=== PATIENT | male | born 1970 | race Two or more races ===

== ENCOUNTER 2017-07-06 15:23 | Emergency (ER) | payer OTHER ==
[~2017-07-06] VITALS: Ht 172.7 cm; Wt 114.3 kg
[~2017-07-06 15:23] MED LIST: CIPRO250 MG; FLAGYL375 MG
[2017-07-06] MEDS ORDERED: SYNTHROID50 MCG (15:30)
[2017-07-06] MEDS ORDERED: HYDROCHLOROTHIA25 MG (15:31)
== END 2017-07-06 18:50 | disposition home or self-care (01) ==
LOC: ER 15:23
DX: J11.1 Influenza due to unidentified influenza virus with other respiratory manifestations (principal); B34.9 Viral infection, unspecified

== ENCOUNTER 2019-11-18 10:35 | Emergency (ER) | payer OTHER ==
[~2019-11-18] VITALS: Ht 172.7 cm; Wt 98.9 kg
[~2019-11-18 10:35] MED LIST changes: +HYDROCHLOROTHIA25 MG; +SYNTHROID50 MCG
[2019-11-18] MEDS ORDERED: UROCIT-K15 MEQ (10:50)
[2019-11-18] MEDS ORDERED: VYZULTA5 ML (10:51)
[2019-11-18] MEDS ORDERED: INTESTINEX680 M1 PO (13:17)
[2019-11-18] MEDS ORDERED: MONDOXYNE NL100 MG PO (13:17)
== END 2019-11-18 13:25 | disposition home or self-care (01) ==
LOC: ER 10:35
DX: S60.572A Other superficial bite of hand of left hand, initial encounter (principal); L03.114 Cellulitis of left upper limb; W54.0XXA Bitten by dog, initial encounter; Y93.89 Activity, other specified; Y92.89 Other specified places as the place of occurrence of the external cause; Y99.8 Other external cause status

== ENCOUNTER 2023-06-20 09:25 | Emergency (ER) | payer OTHER ==
[~2023-06-20] VITALS: Ht 162.6 cm; Wt 79.4 kg
[~2023-06-20 09:25] MED LIST changes: +INTESTINEX680 M1 PO; +MONDOXYNE NL100 MG PO; +UROCIT-K15 MEQ; +VYZULTA5 ML
[2023-06-20 11:32] LABS: HEMATOCRIT 42.6 % (39.0-48.0); HEMOGLOBIN 14.6 g/dL (13-16.00); MEAN CELL VOLUME 86.8 fL (80.0-100.00); MEAN CORPUSCULAR HEMOGLOBIN 29.8 pg (27.00-32.0); MEAN CORPUSCULAR HGB CONC 34.3 g/dl (32.0-36.0); PLATELET COUNT 255 K/uL (150-450); RED BLOOD COUNT 4.91 M/uL (4.00-6.00); RED CELL DISTRIBUTION WIDTH 13.7 % (11.5-14.5)
[2023-06-20 11:33] LABS: URINE APPEARANCE Cloudy; URINE BILIRRUBIN Small (NEGATIVE); URINE BLOOD Large; URINE COLOR Dark Yellow; URINE GLUCOSE Negative (NEGATIVE); URINE LEUKOCYTE Moderate; URINE NITRATE Positive
[2023-06-20 11:36] LABS: URINE BACTERIA 3532.9 uL (0.0-1933); URINE EPITHELIAL CELLS 7.7 uL (0.0-38.8); URINE RBC 6813.7 uL (0.0-20.8); URINE WBC 1238.9 uL (0.0-23.2)
[2023-06-20 11:49] LABS: URINE PROTEIN 100 (NEGATIVE)
[2023-06-20 12:04] LABS: CALCIUM 8.9 mg/dL (8.5-10.1); CREATININE SERUM 0.97 mg/dL (0.70-1.30); GFR 80.35; POTASSIUM 3.45 mEq/L (3.5-5.1)
== END 2023-06-20 14:10 | disposition home or self-care (01) ==
LOC: ER 09:25
PROVIDERS: General Practice
DX: R30.0 Dysuria (principal); N39.0 Urinary tract infection, site not specified; Z88.8 Allergy status to other drugs, medicaments and biological substances; Z88.6 Allergy status to analgesic agent; Z88.0 Allergy status to penicillin; Z91.013 Allergy to seafood; Z20.822 Contact with and (suspected) exposure to COVID-19; E03.9 Hypothyroidism, unspecified

== ENCOUNTER 2023-09-01 10:04 | Emergency (ER) | payer OTHER ==
[~2023-09-01] VITALS: Ht 172.7 cm; Wt 93.9 kg
[2023-09-01] MEDS ORDERED: TAMS0.4C PO (10:27)
== END 2023-09-01 12:51 | disposition home or self-care (01) ==
LOC: ER 10:04
DX: R07.81 Pleurodynia (principal); Z88.0 Allergy status to penicillin; Z88.6 Allergy status to analgesic agent; Z91.013 Allergy to seafood; Z91.041 Radiographic dye allergy status